=== PATIENT | male | born 1960 | race Caucasian/White ===

== ENCOUNTER → 2018-07-05 | Outpatient (CLI) | payer SELFPAY ==
--- NOTE | 2018-07-05 14:01 | PCVCIMAG ---
APPROVED REPORT Study performed: 07/05/2018 11:51:35 Exam: Stress Echocardiogram Indication: CAD s/p CABG, Chest pain, Hyperlipidemia Patient Location: Echo lab Stress Nurse: Lisa Boyer RN Status: routine Ht: 6 ft 0 in HR: 65 bpm BP: 146/88 mmHg Rhythm: NSR Procedure The patient underwent an Exercise Stress Test using the Jaspal Protocol. Blood pressure, heart rate, and EKG were monitored. An Echocardiogram was performed by live truck technician in four stages in quad fashion. At peak stress, four selected images were obtained and placed side by side with resting images for comparison. Stress Test Details Stress Test: Exercise stress testing was performed using a Jaspal protocol. HR Resting HR: 65 bpmMax Heart Rate (APMHR): 162 bpm Max HR Achieved: 162 bpmTarget HR (85% APMHR): 137 bpm % of APMHR: 100 Recovery HR: 90 bpm HR response to stress: Normal HR response to stress BP Resting BP: 146/88 mmHg Max BP: 160/68 mmHg Recovery BP: 130/70 mmHg BP response to stress: Normal blood pressure response to stress. ECG Resting ECG: Sinus Rhythm Stress ECG: Sinus Rhythm ST Change: Normal Arrhythmia: occasional PACs and PVCs Recovery ECG: Sinus Rhythm Recovery ST Change: Normal Recovery Arrhythmia: PAC or PVC Clinical Reason for Termination: Maximal effort Stress Symptoms: Dyspnea, non-limiting chest pain that did not get worse with exertion Exercise duration: 14 min 1 sec Highest Stage Achieved: Stage 5: 5.0 mph at 18% grade. Exercise capacity: 17.2 METs Overall Exercise Capacity for Age: Excellent Scale: Active Angina Score: Non-Limiting Pre-Stress Echo The resting Echocardiogram showed normal left ventricular contractility with an estimated Ejection Fraction of about >55%. Normal wall motion in all segments on baseline images. Post-Stress Echo The stress Echocardiogram showed normal left ventricular contractility with an estimated Ejection Fraction of about 65%. Normal augmentation of wall motion in all segments on post stress images. Clinical No clinical or ECG evidence for ischemia. Conclusion Clinical Response: Equivocal Exercise Capacity: Superior Stress ECG Response: Non-ischemic Stress Echo Images: Non-ischemic The left ventricle is normal in size and wall thickness in both the rest and stress images. Mild MR and TR with PAP of 29 mmHg. Other Information Study Quality: Adequate <Conclusion> The left ventricle is normal in size and wall thickness in both the rest and stress images. Mild MR and TR with PAP of 29 mmHg.
== END | disposition home or self-care (01) ==
LOC: PCVCIMAG 12:35
PROVIDERS: ATTEND Internal Medicine Cardiovascular Disease
DX: I25.10 Atherosclerotic heart disease of native coronary artery without angina pectoris (principal); R07.9 Chest pain, unspecified; E78.5 Hyperlipidemia, unspecified; Z95.1 Presence of aortocoronary bypass graft
CPT/HCPCS: 93325; 93351